=== PATIENT | male | born 1955 | race Caucasian/White ===

== ENCOUNTER → 2018-01-05 | Outpatient (CLI) | payer OTHER ==
--- NOTE | 2018-01-05 12:56 | DIAGNOSTIC IMAGING REPORT ---
CHEST 2 VIEWS ROUTINE CLINICAL HISTORY: Z01.818 Visit for pre-operative [id number] dyspnea COMPARISON STUDY: No previous studies for comparison. FINDINGS: The bones soft tissues and hemidiaphragms are normal. The cardiomediastinal silhouette is normal. The lungs are clear. The pulmonary vasculature is normal. IMPRESSION: Negative chest. The above report was generated using voice recognition software. It may contain grammatical, syntax or spelling errors. Electronically signed by: Da Cool M.D. 01/05/2018 12:55 PM Dictated Date/Time: 01/05/2018 12:53 PM
[2018-01-05 13:08] LABS: BASO % 0.5 %; BASO ABS # 0.04 K/uL (0-0.2); EOS % 0.9 %; EOS ABS # 0.08 K/uL (0-0.5); HEMOGLOBIN 16.3 g/dL (14.0-18.0); IG# 0.02 K/uL (0.00-0.02); LYMPH % 15.7 %; LYMPH ABS # 1.37 K/uL (1.2-3.4); MEAN CELL VOLUME 92.9 fL (80-100); MEAN CORPUSCULAR HEMOGLOBIN 32.2 pg (25-34); MEAN CORPUSCULAR HGB CONC 34.7 g/dl (32-36); MEAN PLATELET VOLUME 10.5 fL (7.4-10.4); MONO % 6.1 %; MONO ABS # 0.53 K/uL (0.11-0.59); NEUT % 76.6 %; PLATELET COUNT 257 K/uL (130-400); RED CELL DISTRIBUTION WIDTH CV 13.8 % (11.5-14.5); WHITE BLOOD COUNT 8.74 K/uL (4.8-10.8)
[2018-01-05 13:24] LABS: PTT PATIENT 27.3 SECONDS (21.0-31.0)
[2018-01-05 14:22] LABS: POTASSIUM 4.3 mmol/L (3.5-5.1)
== END | disposition home or self-care (01) ==
LOC: C.LAB 11:59
DX: Z01.818 Encounter for other preprocedural examination (principal)

== ENCOUNTER → 2018-02-21 | Day surgery (SDC) | payer OTHER ==
[2018-01-17 14:54] VITALS: BMI 27.0
[2018-02-16 13:35] VITALS: Ht 172.7 cm; Wt 81.8 kg
[~2018-02-21] VITALS: Ht 172.7 cm; Wt 81.8 kg
[~2018-02-21] MED LIST: ACET-1256 PO; ACETAMINOPHEN 325 MG TAB PO PRN; ATROPINE SULFATE 0.1 MG/ML 5ML SYR IV PRN; EpHEDrine SULFATE INJ 50 MG/ML AMP IV PRN; FENTANYL CITRATE INJ 50 MCG/1 ML 2 ML VIAL IV PRN; FENTANYL CITRATE INJ 50 MCG/1 ML 2 ML VIAL ONE; LACTATED RINGER'S 1000ML 1,000 ML IV SCH; LIDOCAINE HCL 2% 2 ML VIAL (20MG/ML) ONE; LISI-461 PO; MIDAZOLAM HCL 1 MG/ML 2ML VIAL ONE; MORP-158 PO; MULT-506 PO; OFLOXACIN 0.3% OP SOLN 5 ML BTL ONE; ONDANSETRON INJ 2 MG/ML 2 ML VIAL IV PRN; ONDANSETRON INJ 2 MG/ML 2 ML VIAL ONE; OXYC15TA89 PO; POTA99TA PO; PROPOFOL IV EMULSION 10 MG/ML 20 ML VIAL IV ONE
--- NOTE | 2018-02-21 10:53 | History and Physical: Surg Cnt ---
History & Physical Date Feb 21, 2018. Chief Complaint LEFT OTALGIA/ETD/OM History of Present Illness The patient is a 63 year old male with complaints of LEFT OTALGIA/ETD/OM DESPITE MAXIMAL MEDICAL RX. Past Medical/Surgical History PMH: ABOVE, ALLERGIC RHINITIS, HTN PSH: S/P T&A, S/P B FESS, S/P ANKLE SURGERY, S/P BACK SURGERY, S/P CARPAL TUNNEL SURGERY Additional History Hepatic Disease: No Endocrine Disorder: No Kidney Disease: No Hypertension: No Heart Disease: No Bleeding Tendencies: No Infectious Diseases: No Allergies Coded Allergies: NO KNOWN DRUG ALLERGIES (Verified Allergy, Unknown, ., 02/21/18) Home Medications Scheduled Morphine Sulfate (Ms Contin), 30 MG PO Q12 Multivitamin (Multivitamin), 1 TAB PO DAILY Potassium (Potassium), 1 TAB PO QAM Scheduled PRN Oxycodone Hcl (Oxycontin), 15 MG PO QID PRN for Pain Physical Examination Skin: warm/dry, no rash Eyes: normal inspection, EOMI, sclerae normal ENT: + pertinent finding (L TM THICKENING WITH POSSIBLE MIDDLE EAR EFFUSION) Head: normocephalic, atraumatic Neck: supple, no adenopathy, trachea midline Respiratory/Chest: lungs clear, normal breath sounds, no respiratory distress Cardiovascular: regular rate, rhythm, no edema, no murmur Neurologic/Psych: no motor/sensory deficits, alert, normal reflexes, oriented x 3 Diagnosis LEFT OTALGIA/ETD/OM Plan of Treatment L M&T
--- NOTE | 2018-02-21 13:39 | [facility] Operative Report ---
Operative Report Operative Date Feb 21, 2018. Pre-Operative Diagnosis Eustacian Tube Dysfunction Post-Operative Diagnosis same Procedure(s) Performed Left Myringotomy And Tube Placement Surgeon Dr. Kelly García Shear Assembler Surgeon(s) 0 Estimated Blood Loss 0 Findings MILD LEFT SEROUS MIDDLE EAR EFFUSION Specimens none Anesthesia Type General I attest to the content of the Intraoperative Record and any orders documented therein. Any exceptions are noted below.
--- NOTE | 2018-02-21 13:41 | Discharge Instructions ---
Discharge Instructions Date of Service Feb 21, 2018. Admission Reason for Admission: Eustachian Tube Dysfunction Discharge Discharge Diagnosis / Problem: SAME Discharge Goals Goal(s): Therapeutic intervention Activity Recommendations Activity Limitations: as noted below 1. DRY LEFT EAR PRECAUTIONS WHILE TUBE IS IN PLACE 2. NO NOSE BLOWING FOR 2 WEEKS . Current Hospital Diet Patient's current hospital diet: Discharge Diet Recommended Diet: Regular Diet Procedures Procedures Performed: Left Myringotomy And Tube Placement Pending Studies Studies pending at discharge: no Medical Emergencies . Who to Call and When: Medical Emergencies: If at any time you feel your situation is an emergency, please call 911 immediately. . Non-Emergent Contact Non-Emergency issues call your: Surgeon . . "Provider Documentation" section prepared by Gordon García. .
--- NOTE | 2018-02-21 14:32 | OPERATIVE REPORT ---
DATE OF OPERATION: 02/21/2018 PREOPERATIVE DIAGNOSES: 1. Left otalgia. 2. Left eustachian tube dysfunction. 3. Left mixed hearing loss. POSTOPERATIVE DIAGNOSES: 1. Left otalgia. 2. Left eustachian tube dysfunction. 3. Left mixed hearing loss. PROCEDURE: Left myringotomy and tube placement. SURGEON: Dr. García. ANESTHESIA: General laryngeal mask airway. ESTIMATED BLOOD LOSS: Zero. FINDINGS: Mild left serous middle ear effusions. SPECIMENS: None. COMPLICATIONS: None. INDICATIONS FOR THE PROCEDURE: Patient is a 63-year-old male with a long history of intermittent otalgia, which is unresponsive to maximal medical therapy including systemic antibiotics and steroids. He has a thickened left tympanic membrane with a bony anterior overhang making left myringotomy and tube insertion in the office difficult. He therefore presents for the above-mentioned procedure on an outpatient elective basis. DETAILS OF PROCEDURE: After informed consent had been obtained from the patient, the patient was wheeled to the operating room and on his [facility]. His monitors were placed and after administration of general anesthesia via laryngeal mask airway, the patient's head was gently turned to the right and a speculum was inserted into the left external auditory canal. The operating microscope was wheeled in and used to perform the procedure. A myringotomy knife was used to make a radial incision in the posteroinferior quadrant of the tympanic membrane and the middle ear space was suctioned free of a mild serous middle ear effusion. A silicone Tan tympanostomy tube was then placed. Floxin drops were instilled into the middle ear space and a cotton ball was placed into the conchal bowl. This marked the end of the case. The patient tolerated the procedure well and there were no apparent complications. Patient had his laryngeal mask airway removed and was transferred to the recovery room in stable condition. I attest to the content of the Intraoperative Record and any orders documented therein. Any exception s are noted below.
--- NOTE | 2018-02-21 14:53 | Anesthesiology Progress Note ---
Anesthesia Post Op Note Date & Time Feb 21, 2018 at 14:53 Vital Signs Pain Intensity: 0 Vital Signs Past 12 Hours Date Time Temp Pulse Resp B/P (MAP) Pulse Ox O2 Delivery O2 Flow Rate FiO2 02/21/18 14:25 36.7 66 16 124/72 (89) 98 Room Air 02/21/18 14:23 71 12 96 02/21/18 14:23 36.5 71 13 115/72 95 Room Air 02/21/18 14:23 69 12 02/21/18 14:21 115/72 02/21/18 14:18 63 12 98 02/21/18 14:18 64 12 02/21/18 14:15 122/70 02/21/18 14:13 66 30 99 02/21/18 14:13 66 30 02/21/18 14:10 108/65 02/21/18 14:08 66 29 99 02/21/18 14:08 66 29 02/21/18 14:05 107/61 02/21/18 14:03 65 20 99 02/21/18 14:03 64 20 02/21/18 14:00 103/65 02/21/18 13:58 71 6 02/21/18 13:58 71 6 99 02/21/18 13:55 113/65 02/21/18 13:53 65 107/68 99 02/21/18 13:53 36.8 64 20 107/68 99 Mask 6 02/21/18 13:53 65 02/21/18 10:50 36.8 80 18 131/77 (95) 98 Room Air Notes Mental Status: alert / awake / arousable, participated in evaluation Pt Amnestic to Procedure: Yes Nausea / Vomiting: adequately controlled Pain: adequately controlled Airway Patency, RR, SpO2: stable & adequate BP & HR: stable & adequate Hydration State: stable & adequate Anesthetic Complications: no major complications apparent
[2018-02-21 14:55] VITALS: BP 115/69; PULSE 58; O2SAT 96
== END | disposition home or self-care (01) ==
LOC: X.SURG 10:36
DX: H92.02 Otalgia, left ear (principal); H69.92 Unspecified Eustachian tube disorder, left ear; H90.72 Mixed conductive and sensorineural hearing loss, unilateral, left ear, with unrestricted hearing on the contralateral side; K21.9 Gastro-esophageal reflux disease without esophagitis; I10 Essential (primary) hypertension; J30.9 Allergic rhinitis, unspecified; Z98.890 Other specified postprocedural states; Z79.899 Other long term (current) drug therapy